=== PATIENT | male | born 1965 | race Caucasian/White ===

== ENCOUNTER 2020-07-09 11:07 | Emergency (ER) | payer OTHER ==
[~2020-07-09] VITALS: Ht 162.6 cm; Wt 78.9 kg
[~2020-07-09 11:07] MED LIST: ABAC1TAB3 PO; CARV25TA PO; DARU600T2 PO; DOXA4TAB3 PO; GLIP5TAB13 PO; HYDR25TA4 PO; LISI2.5T2 PO; OMEP20TA5 PO; PRAV40TA3 PO
[2020-07-09 11:14] VITALS: BP 160/105
--- NOTE | 2020-07-09 11:31 | NUR ---
Patient discharged to home in stable condition. Written and verbal after care instructions given. Patient verbalizes understanding of instruction.
== END 2020-07-09 11:31 | disposition home or self-care (01) ==
LOC: ER 11:07
DX: M54.12 Radiculopathy, cervical region (principal); I10 Essential (primary) hypertension; E11.9 Type 2 diabetes mellitus without complications; K21.9 Gastro-esophageal reflux disease without esophagitis; Z79.899 Other long term (current) drug therapy

== ENCOUNTER 2021-07-16 13:19 | Emergency (ER) | payer OTHER ==
[~2021-07-16] VITALS: Ht 162.6 cm; Wt 75.3 kg
--- NOTE | 2021-07-16 13:40 | NUR ---
TO ER BED 4, PENILE ITCHING, PERSISTENT URGE TO URINATE SINCE YESTERDAY, AAOX4, BREATHING EVEN AND NON LABORED
--- NOTE | 2021-07-16 14:17 | NUR ---
URINE SENT TO LAB
[2021-07-16 16:13] LABS: BILIRUBIN,URINE NEGATIVE (NEGATIVE); COLOR,URINE YELLOW (YELLOW); LEUKOCYTE ESTERASE ,URINE NEGATIVE (NEGATIVE); NITRITE, URINE NEGATIVE (NEGATIVE); UGLUCOSE NEGATIVE (NEGATIVE); UROBILINOGEN,URINE 0.2 EU/dL (0.2)
[2021-07-16 16:14] LABS: PROTEIN,URINE NEGATIVE (NEGATIVE)
[2021-07-16] MEDS ORDERED: CLOT15CR27 TP (16:51)
--- NOTE | 2021-07-16 17:02 | NUR ---
Patient discharged to home in stable condition. Written and verbal after care instructions given. Patient verbalizes understanding of instruction.
[2021-07-16 17:03] VITALS: BP 131/75
== END 2021-07-16 17:03 | disposition home or self-care (01) ==
LOC: ER 13:25
DX: N48.1 Balanitis (principal); I10 Essential (primary) hypertension; E11.9 Type 2 diabetes mellitus without complications; K21.9 Gastro-esophageal reflux disease without esophagitis; Z79.899 Other long term (current) drug therapy; Z79.84 Long term (current) use of oral hypoglycemic drugs

== ENCOUNTER → 2021-12-25 | Emergency (ER) | payer OTHER ==
[~2021-12-25] VITALS: Ht 167.6 cm; Wt 72.6 kg
[~2021-12-25] MED LIST changes: +CLOT15CR27 TP; +HYDR30CR79 TP
[2021-12-25 18:44] VITALS: BP 162/85
--- NOTE | 2021-12-25 19:45 | NUR ---
Patient discharged to home in stable condition. Written and verbal after care instructions given. Patient verbalizes understanding of instruction.
== END | disposition home or self-care (01) ==
LOC: ER 18:46
DX: K64.8 Other hemorrhoids (principal); I10 Essential (primary) hypertension; K21.9 Gastro-esophageal reflux disease without esophagitis; E11.9 Type 2 diabetes mellitus without complications; Z79.52 Long term (current) use of systemic steroids; Z79.899 Other long term (current) drug therapy

== ENCOUNTER 2022-01-04 08:33 | Emergency (ER) | payer OTHER ==
[~2022-01-04] VITALS: Ht 162.6 cm; Wt 77.1 kg
[2022-01-04 08:52] VITALS: BP 163/87
--- NOTE | 2022-01-04 08:52 | NUR ---
SENT TO ER BED 1. BIBS C/O ITCHY THROAT X3DAYS.
--- NOTE | 2022-01-04 09:11 | NUR ---
RAPID STREP SWAB DONE AND SENT TO LAB
--- NOTE | 2022-01-04 10:18 | NUR ---
Patient discharged to home in stable condition. Written and verbal after care instructions given. Patient verbalizes understanding of instruction.
== END 2022-01-04 10:19 | disposition home or self-care (01) ==
LOC: ER 08:36
DX: R07.0 Pain in throat (principal); L29.9 Pruritus, unspecified; I10 Essential (primary) hypertension; K21.9 Gastro-esophageal reflux disease without esophagitis; Z79.899 Other long term (current) drug therapy
CPT/HCPCS: 86403-TC; 87070-TC

== ENCOUNTER 2022-04-20 06:34 | Emergency (ER) | payer OTHER ==
[~2022-04-20] VITALS: Ht 162.6 cm; Wt 76.2 kg
--- NOTE | 2022-04-20 06:51 | NUR ---
BIBS. RECTAL PAIN X LAST 05/08/22 S/P COLON SX. URINARY FREQUENCY X 3 DAYS. PT A/OX4. TOLERATING R/A WELL WITH NO SOB. AMBULATORY WITH STEADY GAIT. CONNECTED PT TO POX AND MONITOR. SAFETY MEASURES IN PLACE.
--- NOTE | 2022-04-20 06:59 | NUR ---
BIBS TO ER BED 7.AAOX4. NOT IN RESP DISTRESS. AMBULATORY. CAME IN FOR RECTAL PAIN SINCE HAD HIS COLON SURGERY FOR TUMOR REMOVAL. PT ALSO COMPLAINS OF URINARY FREQUENCY FOR THE PAST 3 DAYS WHIC HE THINKS MIGHT BE CAUSED BY HIS PAIN MEDS THAT HAVE CODEINE. PAIN IS REPORTED TO BE WORSENING. SURGERY WAS DONE AT [facility]. PT IS GOWN. AWAITING MD FOR EVAL. URINE WAS ALSO COLLECTED AND SENT TO LAB
--- NOTE | 2022-04-20 07:01 | NUR ---
URINE COLLECTED AND SENT TO LAB
--- NOTE | 2022-04-20 07:07 | NUR ---
DR. BEN VANEGAS AT PT'S BEDSIDE
[2022-04-20] MEDS ORDERED: ONDANSETRON HCL/PF 4 MG/2 ML VIAL IVP ONE (07:30)
[2022-04-20] MEDS ORDERED: MORPHINE SULFATE INJ 4 MG/ML DISP.SYRIN ONE (07:30)
[2022-04-20] MEDS ORDERED: MORPHINE SULFATE INJ 2 MG/ML DISP.SYRIN IV ONE (07:30)
[2022-04-20] MEDS ORDERED: IV NS 0.9% 1,000 ML BAG IV ONE (07:30)
[2022-04-20] MEDS ORDERED: ONDANSETRON HCL/PF 4 MG/2 ML VIAL ONE (07:30)
[2022-04-20 07:49] LABS: BASOPHILS % (AUTO) 0.5 % (0.0-2.0); EOSINOPHILS % (AUTO) 2.9 % (0.0-6.0); HEMATOCRIT 37 % (39-51); HEMOGLOBIN 12.7 g/dL (13.5-17.5); LYMPHOCYTES # (AUTO) 1.2 K/uL (0.8-4.8); LYMPHOCYTES % (AUTO) 17.1 % (20.0-44.0); MEAN CORPUSCULAR HGB CONC 35 g/dl (31.0-36.0); MEAN CORPUSCULAR VOLUME 93 fL (80-96); MONOCYTES # (AUTO) 0.6 K/uL (0.1-1.30); NEUTROPHILS % (AUTO) 71.5 % (43.0-81.0); PLATELET COUNT (AUTO) 188 K/uL (150-450); RED BLOOD CELL COUNT(AUTO) 3.94 MIL/uL (4.5-6.0)
[2022-04-20 08:00] LABS: BILIRUBIN,URINE NEGATIVE (NEGATIVE); COLOR,URINE YELLOW (YELLOW); LEUKOCYTE ESTERASE ,URINE NEGATIVE (NEGATIVE); NITRITE, URINE NEGATIVE (NEGATIVE); PROTEIN,URINE 30 mg/dl (NEGATIVE); UGLUCOSE NEGATIVE (NEGATIVE); UROBILINOGEN,URINE 0.2 EU/dL (0.2)
[2022-04-20 08:03] LABS: CREATININE 1.2 mg/dL (0.6-1.3); POTASSIUM 4.1 mmol/L (3.5-5.1)
[2022-04-20 08:18] LABS: ALBUMIN 3.8 g/dL (3.4-5.0); BILIRUBIN,DIRECT 0.1 mg/dL (0.0-0.2); BILIRUBIN,TOTAL 0.6 mg/dL (0.2-1.0); TOTAL PROTEIN, SERUM 8.3 g/dL (6.4-8.2)
--- NOTE | 2022-04-20 08:38 | NUR ---
CALLED [facility] AND WAS NOTIFIED OF PT STATUS. NOW AWAITING CALL BACK FOR RADHA VANEGAS TO SPEAK TO DR. NARANJO
[2022-04-20 09:00] LABS: BACTERIA,URINE None seen /HPF (None Seen); SQUAMOUS EPITHELIAL CELL,UR 0-2 /HPF (None Seen); WBC,URINE 0-2 /HPF (0-3)
[2022-04-20 09:01] LABS: RBC,URINE 0-2 /HPF (0-2)
[2022-04-20] MEDS ORDERED: ACET325T53 PO (09:24)
[2022-04-20] MEDS ORDERED: POLY17PO4 PO (09:24)
[2022-04-20] MEDS ORDERED: DOCU100C36 PO (09:24)
[2022-04-20 10:20] VITALS: BP 124/75
--- NOTE | 2022-04-20 10:24 | NUR ---
Patient discharged to home in stable condition. Written and verbal after care instructions given. Patient verbalizes understanding of instruction.
== END 2022-04-20 10:24 | disposition home or self-care (01) ==
LOC: ER 06:34
DX: K62.89 Other specified diseases of anus and rectum (principal); I10 Essential (primary) hypertension; K21.9 Gastro-esophageal reflux disease without esophagitis; E11.9 Type 2 diabetes mellitus without complications; Z79.899 Other long term (current) drug therapy
CPT/HCPCS: 36415; 74176; 80048; 80076; 81001; 83605; 85025; 87040 ×2; 87086; 96361; 96374; 96375; 99284; J2270; J2405; J7030

== ENCOUNTER 2022-04-28 22:09 | Inpatient (IN) | payer OTHER ==
[~2022-04-28] VITALS: Ht 170.2 cm; Wt 76.2 kg
[~2022-04-28 22:09] MED LIST changes: +ACET325T53 PO; +DOCU100C36 PO; +POLY17PO4 PO
--- NOTE | 2022-04-28 22:22 | NUR ---
BIBRA C/O BRIGHT RED RECTAL BLEEDING S/P POLYP REMOVAL AT [facility]. PT AWAKE AND ALERT X4 BREATHING EVEN AND UNLABORED DENIES PAIN. PT CHANGED INTO GOWN AND PLACED ON MONITOR AND V/S WNL.
--- NOTE | 2022-04-28 22:24 | NUR ---
DR GUPTA CONSULTING WITH SHIRLEY ARCINIEGA ON THE PHONE
--- NOTE | 2022-04-28 22:35 | NUR ---
18G IV LINE ESTABLISHED AT [facility] BLOOD DRAWN AND SENT TO LAB
[2022-04-28 22:46] LABS: BASOPHILS % (AUTO) 0.6 % (0.0-2.0); EOSINOPHILS % (AUTO) 1.9 % (0.0-6.0); HEMATOCRIT 39 % (39-51); HEMOGLOBIN 13.5 g/dL (13.5-17.5); LYMPHOCYTES # (AUTO) 2.2 K/uL (0.8-4.8); LYMPHOCYTES % (AUTO) 25.8 % (20.0-44.0); MEAN CORPUSCULAR HGB CONC 35 g/dl (31.0-36.0); MEAN CORPUSCULAR VOLUME 93 fL (80-96); MONOCYTES # (AUTO) 0.5 K/uL (0.1-1.30); MONOCYTES % (AUTO) 6.1 % (2.0-12.0); NEUTROPHILS # (AUTO) 5.5 K/uL (1.8-8.9); NEUTROPHILS % (AUTO) 65.6 % (43.0-81.0); PLATELET COUNT (AUTO) 213 K/uL (150-450); RED BLOOD CELL COUNT(AUTO) 4.18 MIL/uL (4.5-6.0); WHITE BLOOD COUNT (AUTO) 8.4 K/uL (4.3-11.0)
--- NOTE | 2022-04-28 22:48 | NUR ---
FLUME WORKER AT PT'S BEDSIDE
--- NOTE | 2022-04-28 22:53 | NUR ---
SECOND IV LINE ESTABLISHED 18G AT [facility] PER MD ORDER
--- NOTE | 2022-04-28 22:54 | NUR ---
COVID TEST COLLECTED AND SENT TO LAB
[2022-04-28] MEDS ORDERED: IV NS 0.9% 1,000 ML BAG IV ONE (23:00)
[2022-04-28 23:13] LABS: ALANINE AMINOTRANSFERASE 15 U/L (12-78); ALBUMIN 4.1 g/dL (3.4-5.0); ALKALINE PHOSPHATASE 92 U/L (46-116); ASPARTATE AMINOTRANSFERASE 19 U/L (15-37); BILIRUBIN,DIRECT 0.1 mg/dL (0.0-0.2); BILIRUBIN,TOTAL 0.5 mg/dL (0.2-1.0); CALCIUM, SERUM 9.5 mg/dL (8.5-10.1); CARBON DIOXIDE 28 mmol/L (21-32); CREATININE 1.3 mg/dL (0.6-1.3); GLUCOSE 112 mg/dL (74-106); LIPASE 94 U/L (73-393); UREA NITROGEN, BLOOD 24 mg/dL (7-18)
[2022-04-28 23:30] LABS: CHLORIDE 100 mmol/L (98-107); POTASSIUM 3.9 mmol/L (3.5-5.1); SODIUM SERUM 136 mmol/L (136-145)
[2022-04-28] MEDS ORDERED: ONDANSETRON HCL/PF 4 MG/2 ML VIAL IVP PRN (23:30)
[2022-04-28] MEDS ORDERED: ACETAMINOPHEN 325 MG TABLET PO PRN (23:30)
[2022-04-29] VITALS (25 sets, daily range): BP systolic 122–168; BP diastolic 68–112
--- NOTE | 2022-04-29 00:24 | NUR ---
CALLED FOR REPORT. RN WILL CALL BACK.
--- NOTE | 2022-04-29 00:24 | NUR ---
EGG SETTER AT BEDSIDE FOR ECHOCARDIOGRAM
--- NOTE | 2022-04-29 00:25 | NUR ---
MRSA SWAB COLLECTED AND SENT TO LAB. PATIENT'S BELONGINGS LIST DONE.
--- NOTE | 2022-04-29 00:30 | NUR ---
PATIENT'S HOME LIST UPDATED PER PT'S STATEMENT; HOWEVER, HE DOES NOT RECALL THE COMPLETE LIST OF HIS HOME MEDS WITH THEIR FREQUENCY AND DOSE
[2022-04-29] MEDS ORDERED: DOLU1TAB PO (00:36)
[2022-04-29] MEDS ORDERED: FLUO40CA8 PO (00:36)
[2022-04-29] MEDS ORDERED: ALFU10TA10 PO (00:36)
[2022-04-29] MEDS ORDERED: METF-440 PO (00:36)
[2022-04-29] MEDS ORDERED: ATOR10TA PO (00:36)
--- NOTE | 2022-04-29 00:45 | NUR ---
REPORT GIVEN TO HORTENCIA MACDONALD
[2022-04-29] MEDS: IV NS 0.9% 1,000 ML IV PRN ×2 (00:51→15:06)
--- NOTE | 2022-04-29 00:59 | NUR ---
PT TRANSPORTED TO ROOM 252 ON CARDIAC PER ACLS
--- NOTE | 2022-04-29 01:00 | NUR ---
ICU/LEATHER ETCHER PT RECIEVED FROM ER. PLACED INTO BED. CALL LIGHT WITHIN REACH.
[2022-04-29] MEDS: PANTOPRAZOLE 40 MG VIAL IV SCH ×2 (01:42→08:52)
[2022-04-29 02:37] LABS: BASOPHILS % (AUTO) 0.5 % (0.0-2.0); EOSINOPHILS % (AUTO) 2.6 % (0.0-6.0); HEMATOCRIT 35 % (39-51); HEMOGLOBIN 12.4 g/dL (13.5-17.5); LYMPHOCYTES # (AUTO) 2.2 K/uL (0.8-4.8); LYMPHOCYTES % (AUTO) 26.7 % (20.0-44.0); MEAN CORPUSCULAR HGB CONC 35 g/dl (31.0-36.0); MEAN CORPUSCULAR VOLUME 92 fL (80-96); MONOCYTES # (AUTO) 0.6 K/uL (0.1-1.30); MONOCYTES % (AUTO) 7.1 % (2.0-12.0); NEUTROPHILS # (AUTO) 5.1 K/uL (1.8-8.9); NEUTROPHILS % (AUTO) 63.1 % (43.0-81.0); PLATELET COUNT (AUTO) 201 K/uL (150-450); RED BLOOD CELL COUNT(AUTO) 3.82 MIL/uL (4.5-6.0); WHITE BLOOD COUNT (AUTO) 8.1 K/uL (4.3-11.0)
[2022-04-29 02:49] LABS: CALCIUM, SERUM 8.7 mg/dL (8.5-10.1); CREATININE 1.2 mg/dL (0.6-1.3); PHOSPHORUS 3.6 mg/dL (2.5-4.9)
--- NOTE | 2022-04-29 03:00 | NUR ---
ICU/LOG POND WORKER AM CRITICAL OF TROP IS 146, EALIER WAS 151. EDGE WORKER JOSE GOMEZ WAS AWARE. NO ORDERS.
[2022-04-29 03:02] LABS: POTASSIUM 3.9 mmol/L (3.5-5.1)
[2022-04-29 05:53] LABS: BASOPHILS % (AUTO) 0.4 % (0.0-2.0); HEMATOCRIT 36 % (39-51); HEMOGLOBIN 12.4 g/dL (13.5-17.5); LYMPHOCYTES # (AUTO) 1.8 K/uL (0.8-4.8); LYMPHOCYTES % (AUTO) 25.2 % (20.0-44.0); MEAN CORPUSCULAR HGB CONC 35 g/dl (31.0-36.0); MEAN CORPUSCULAR VOLUME 93 fL (80-96); MONOCYTES # (AUTO) 0.5 K/uL (0.1-1.30); MONOCYTES % (AUTO) 6.8 % (2.0-12.0); NEUTROPHILS # (AUTO) 4.7 K/uL (1.8-8.9); NEUTROPHILS % (AUTO) 65.6 % (43.0-81.0); PLATELET COUNT (AUTO) 202 K/uL (150-450); RED BLOOD CELL COUNT(AUTO) 3.86 MIL/uL (4.5-6.0); WHITE BLOOD COUNT (AUTO) 7.2 K/uL (4.3-11.0)
--- NOTE | 2022-04-29 06:00 | NUR ---
ICU/AGILE JAVA DEVELOPER PT CHANGED DIAPER, SMALL BLOODY FOUND IN DIAPER. H/H IS STABLE AT THIS TIME.
--- NOTE | 2022-04-29 07:36 | NUR ---
RN NOTE PATIENT RECEIVED IN BED, RESTING. PATIENT ON RA WITH NO SIGNS OF LABORED BREATHING AT THIS TIME. RIGHT AC 18G AND LEFT AC 18G IV UN PLACE RUNNING NS AT 75CC/HR. BED LOCKED AND IN LOWEST POSITION, CALL LIGHT WITHIN REACH, 3 SIDE RAILS UP.
[2022-04-29] MEDS ORDERED: ACETAMINOPHEN 325 MG TABLET PO PRN (08:30)
[2022-04-29] MEDS: FLUOXETINE HCL 20 MG CAPSULE PO SCH (08:53)
[2022-04-29] MEDS: ATORVASTATIN 10 MG TABLET PO SCH (08:53)
[2022-04-29] MEDS: DOCUSATE SODIUM 100 MG CAPSULE PO SCH ×2 (08:53→16:16)
[2022-04-29] MEDS ORDERED: ALFUZOSIN HCL PO SCH (09:00)
[2022-04-29] MEDS: CLOTRIMAZOLE 1% 15 GM TUBE TP SCH ×2 (09:05→16:16)
[2022-04-29] MEDS: HYDROCORTISONE CR 30 GM TUBE RC SCH ×3 (09:05→16:16)
[2022-04-29] MEDS ORDERED: IV NS 0.9% 250 ML IV ONE (11:29)
[2022-04-29] MEDS ORDERED: METOPROLOL TARTRATE INJ 5 MG/5 ML AMPUL ONE ×4 (11:29→12:21)
[2022-04-29] MEDS ORDERED: NITROGLYCERIN 0.4 MG/TAB BOTTLE ONE (11:29)
[2022-04-29] MEDS ORDERED: CT SWABBABLE VALVE TRANS SET 1 EA INFUS.SET MC ONE (11:29)
[2022-04-29] MEDS ORDERED: IOHEXOL-350 100 ML VIAL IV ONE ×2 (11:29→12:40)
[2022-04-29] MEDS: METOPROLOL TARTRATE INJ 5 MG/5 ML AMPUL IVP PRN ×10 (11:50→12:35)
--- NOTE | 2022-04-29 11:50 | NUR ---
RN NOTE PT TRANSPORTED FOR CT CORONARY ANGIOGRAM WITH CONTRACT. RN ARPI TO STAY WITH PT.
[2022-04-29] MEDS ORDERED: NITROGLYCERIN 0.4 MG/TAB BOTTLE SL ONE (12:00)
--- NOTE | 2022-04-29 15:00 | NUR ---
RN NOTE CRITICAL LAB VALUE OF TROPONIN 164 RECEIVED, NOTIFIED DR. HEBERT.
--- NOTE | 2022-04-29 16:06 | NUR ---
RN NOTE BP ELEVATED 161/112 AND 165/102. NO PRN OR SCHEDULED BLOOD PRESSURE MEDICATION AVAILABLE. DR. HEBERT NOTIFIED.
--- NOTE | 2022-04-29 18:37 | NUR ---
RN CLOSING NOTE PATIENT REMAINS IN BED, AWAKE, A&OX4. PATIENT ON RA WITH NO SIGNS OF LABORED BREATHING AT THIS TIME. RIGHT AC 18G AND LEFT AC 18G IV UN PLACE RUNNING NS AT 75CC/HR. PT SCHEDULED FOR LEFT HEART CATH IN AM, CONSENT SIGNED IN CHART. BED LOCKED AND IN LOWEST POSITION, CALL LIGHT WITHIN REACH, 3 SIDE RAILS UP. WILL ENDORSE TO SHREDDING MACHINE OPERATOR NURSE FOR PHILIP.
[2022-04-29] MEDS ORDERED: TEMAZEPAM 7.5 MG CAPSULE PO PRN (21:00)
[2022-04-30] VITALS (19 sets, daily range): BP systolic 139–173; BP diastolic 77–105
--- NOTE | 2022-04-30 00:10 | NUR ---
ICU/STAFF THERAPIST PT IS CURRENTLY NPO FOR CONTROL CLERK SUBASSEMBLY @10 AM TODAY.
[2022-04-30] MEDS: IV NS 0.9% 1,000 ML IV PRN ×2 (03:04→17:01)
--- NOTE | 2022-04-30 07:28 | NUR ---
RN NOTE PATIENT RECEIVED IN BED, RESTING. PATIENT ON RA WITH NO SIGNS OF LABORED BREATHING AT THIS TIME. RIGHT AC 18G AND LEFT AC 18G IV UN PLACE RUNNING NS AT 75CC/HR. PT NPO SINCE MIDNIGHT FOR SCHEDULED SPA CONCIERGE PROCEDURE TODAY. BED LOCKED AND IN LOWEST POSITION, CALL LIGHT WITHIN REACH, 3 SIDE RAILS UP.
[2022-04-30] MEDS: PANTOPRAZOLE 40 MG VIAL IV SCH (08:01)
[2022-04-30] MEDS: DOCUSATE SODIUM 100 MG CAPSULE PO SCH ×2 (08:01→16:32)
[2022-04-30] MEDS: ATORVASTATIN 10 MG TABLET PO SCH (08:01)
[2022-04-30] MEDS: CLOTRIMAZOLE 1% 15 GM TUBE TP SCH ×2 (08:01→16:33)
[2022-04-30] MEDS: HYDROCORTISONE CR 30 GM TUBE RC SCH ×3 (08:01→16:33)
[2022-04-30] MEDS: FLUOXETINE HCL 20 MG CAPSULE PO SCH (08:01)
[2022-04-30] MEDS ORDERED: IV SET PRIMARY PUMP SET 1 EA INFUS.SET MC ONE (10:14)
[2022-04-30] MEDS ORDERED: IV NS 0.9% 1,000 ML ONE (10:14)
[2022-04-30] MEDS ORDERED: IODIXANOL 150 ML IV ONE (10:14)
[2022-04-30] MEDS ORDERED: LIDOCAINE 1% INJ 50 ML MDV IJ ONE (10:15)
--- NOTE | 2022-04-30 10:16 | NUR ---
RN NOTE PATIENT PICKED UP BY MARINE PILOT TEAM WITH FERN BROWN FOR PROCEDURE.
[2022-04-30] MEDS ORDERED: FENTANYL PF 100MCG/2ML AMPUL ONE (10:26)
[2022-04-30] MEDS ORDERED: MIDAZOLAM HCL 2 MG/2ML VIAL ONE (10:27)
[2022-04-30] MEDS ORDERED: hydrALAZINE HCL IV 20 MG VIAL ONE (11:04)
[2022-04-30] MEDS ORDERED: NICARDIPINE HCL 25 MG/10 ML VIAL IV ONE (11:07)
--- NOTE | 2022-04-30 11:45 | NUR ---
RN NOTE PATIENT RETURN FROM CAUSTIC ROOM ATTENDANT. TR BAND ON RIGHT WRIST WITH 14CC OF AIR PLACED AT 1120. PER ORDER, WILL START TO DC BAND ONE HOUR AFTER PLACEMENT GRADUALLY. NO SIGNS OF BLEEDING AT SITE AT THIS TIME. PT DOES NOT REPORT PAIN OR DISCOMFORT. VITAL SIGNS STABLE, NO SHORTNESS OF BREATH NOTED.
--- NOTE | 2022-04-30 12:22 | NUR ---
RN NOTE 3CC OF AIR REMOVED FROM TR BAND. NO SIGNS OF BLEEDING.
--- NOTE | 2022-04-30 12:38 | NUR ---
RN NOTE 5CC OF AIR REMOVED FROM TR BAND. NO BLEEDING.
--- NOTE | 2022-04-30 12:53 | NUR ---
RN NOTE 3CC OF AIR REMOVED. NO SIGNS OF BLEEDING.
--- NOTE | 2022-04-30 13:16 | NUR ---
RN NOTE TR BAND REMOVED. NO SIGNS OF BLEEDING. DRESSING PLACED.
[2022-04-30 14:46] LABS: CALCIUM, SERUM 8.9 mg/dL (8.5-10.1); POTASSIUM 3.5 mmol/L (3.5-5.1)
[2022-04-30 14:52] LABS: BASOPHILS % (AUTO) 0.5 % (0.0-2.0); EOSINOPHILS % (AUTO) 0.9 % (0.0-6.0); HEMATOCRIT 36 % (39-51); HEMOGLOBIN 12.7 g/dL (13.5-17.5); LYMPHOCYTES # (AUTO) 1.5 K/uL (0.8-4.8); LYMPHOCYTES % (AUTO) 20.6 % (20.0-44.0); MEAN CORPUSCULAR HGB CONC 35 g/dl (31.0-36.0); MEAN CORPUSCULAR VOLUME 92 fL (80-96); MONOCYTES # (AUTO) 0.4 K/uL (0.1-1.30); MONOCYTES % (AUTO) 5.7 % (2.0-12.0); NEUTROPHILS # (AUTO) 5.1 K/uL (1.8-8.9); NEUTROPHILS % (AUTO) 72.3 % (43.0-81.0); PLATELET COUNT (AUTO) 219 K/uL (150-450); RED BLOOD CELL COUNT(AUTO) 3.95 MIL/uL (4.5-6.0)
--- NOTE | 2022-04-30 17:40 | NUR ---
RN NOTE PATIENT TRANSFERRED TO [facility] BED 320-1. REPORT GIVEN TO JAIME BORWN FOR HPILIP.
[2022-04-30] MEDS ORDERED: CLONIDINE HCL 0.1 MG TABLET PO PRN (18:00)
--- NOTE | 2022-04-30 18:01 | NUR ---
SENIOR HYDROGEOLOGIST NOTES PATIENT TRANSFERRED FROM ICU 320-1 @1745, A/Ox4. ACCOMPANIED BY KEVIN ARTEAGA. ON ROOM AIR NO S/S OF RESPIRATORY DISTRESS OR DISCOMFORT. PATIENT IS ON TELE MONITORING CURRENTLY SHOWING SINUS RHYTHM 89. POLISH SPEAKING BUT UNDERSTANDS CITIZEN OF [place] ABLE TO MAKE NEEDS KNOWN. CAME IN FOR RECTAL BLEEDING AND NSTEMI. IV ACCESS ON R AND L AC #18G, L AC RUNNING NS @75 ML/HR, INTACT AND PATENT. SKIN INTACT, NO PAIN OR DISCOMFORT NOTED OR VERBALIZED AT THIS TIME. TR-BAND REMOVED FROM ICU, DRESSING PRESENT AND INTACT ON R WRIST. NO S/S OF BLEEDING NOTED. SAFETY MEASURES MAINTAINED: BED LOCKED AND IN LOWEST POSITION, SIDE RAILS UP x2, CALL LIGHT WITHIN REACH. HEAD OF THE BED ELEVATED. WILL CONTINUE TO MONITOR.
--- NOTE | 2022-04-30 18:08 | NUR ---
APPRENTICE EMBALMER NOTES DR. HEBERT NOTIFIED OF HIGH BLOOD PRESSURE 164/90. CLONIDINE 0.1 MG PO TABLET PRN Q6 ORDERED. NEW ORDER NOTED AND MEDICATION ADMINISTERED. REQUESTED DR. HEBERT TO ALSO DO MEDICATION RECON.
--- NOTE | 2022-04-30 18:35 | NUR ---
PRODUCTION ENGINEER CLOSING NOTES PATIENT RESTING IN BED WATCHING TV, A/Ox4. STABLE ON ROOM AIR NO S/S OF RESPIRATORY DISTRESS OR DISCOMFORT. PATIENT IS ON TELE MONITORING CURRENTLY SHOWING SINUS RHYTHM 90. JAPANESE SPEAKING BUT UNDERSTANDS CHINESE ABLE TO MAKE NEEDS KNOWN. CAME IN FOR RECTAL BLEEDING AND NSTEMI. IV ACCESS ON R AND L AC #18G, L AC RUNNING NS @75 ML/HR, INTACT AND PATENT. SKIN INTACT, NO PAIN OR DISCOMFORT NOTED OR VERBALIZED AT THIS TIME. TR-BAND REMOVED FROM ICU, DRESSING PRESENT AND INTACT ON R WRIST. NO S/S OF BLEEDING NOTED. SAFETY MEASURES MAINTAINED: BED LOCKED AND IN LOWEST POSITION, SIDE RAILS UP x2, CALL LIGHT WITHIN REACH. HEAD OF THE BED ELEVATED. WILL ENDORSE TO NEXT SHIFT ANY PHILIP.
--- NOTE | 2022-04-30 19:36 | NUR ---
RN OPENING NOTES PATIENT RECIEVED IN BED AA/Ox4. STABLE ON ROOM AIR NO SIGN SOB/DISTRESS NOTED.BENGAL[place] SPEAKING BUT UNDERSTANDS ALBANIAN ABLE TO MAKE NEEDS KNOWN.IV ACCESS ON R AND L AC 18G,INTACT AND PATENT. SKIN INTACT, NO PAIN OR DISCOMFORT AT THIS TIME.SAFETY MEASURES MAINTAINED: BED LOCKED AND IN LOWEST POSITION, SIDE RAILS UP x2, CALL LIGHT WITHIN REACH.WILL CONTINUE TO MONITOR.
[2022-05-01] VITALS: BP 150/58
[2022-05-01 01:29] VITALS: BP 150/88
[2022-05-01 04:00] VITALS: BP 159/87
[2022-05-01] MEDS: IV NS 0.9% 1,000 ML IV PRN (05:44)
[2022-05-01 06:44] LABS: BASOPHILS % (AUTO) 0.5 % (0.0-2.0); EOSINOPHILS % (AUTO) 2.3 % (0.0-6.0); HEMATOCRIT 33 % (39-51); HEMOGLOBIN 11.7 g/dL (13.5-17.5); LYMPHOCYTES # (AUTO) 1.4 K/uL (0.8-4.8); LYMPHOCYTES % (AUTO) 21.4 % (20.0-44.0); MEAN CORPUSCULAR HGB CONC 36 g/dl (31.0-36.0); MEAN CORPUSCULAR VOLUME 91 fL (80-96); MONOCYTES # (AUTO) 0.5 K/uL (0.1-1.30); MONOCYTES % (AUTO) 7.3 % (2.0-12.0); NEUTROPHILS # (AUTO) 4.5 K/uL (1.8-8.9); NEUTROPHILS % (AUTO) 68.5 % (43.0-81.0); PLATELET COUNT (AUTO) 193 K/uL (150-450); RED BLOOD CELL COUNT(AUTO) 3.59 MIL/uL (4.5-6.0); WHITE BLOOD COUNT (AUTO) 6.6 K/uL (4.3-11.0)
--- NOTE | 2022-05-01 06:51 | NUR ---
RN OPENING NOTES PATIENT IN BED AA/Ox4. STABLE ON ROOM AIR NO SIGN SOB/DISTRESS NOTED.IV ACCESS ON R AND L AC 18G,INTACT AND PATENT.ALL DUE MEDS GIVEN ORDER.NO PAIN OR DISCOMFORT DURING SHIFT.SAFETY MEASURES MAINTAINED: BED LOCKED AND IN LOWEST POSITION, SIDE RAILS UP x2, CALL LIGHT WITHIN REACH.WILL ENDORSED TO NEXT SHIFT.
[2022-05-01 07:07] LABS: CALCIUM, SERUM 8.7 mg/dL (8.5-10.1); CREATININE 0.9 mg/dL (0.6-1.3); POTASSIUM 3.4 mmol/L (3.5-5.1)
--- NOTE | 2022-05-01 07:27 | NUR ---
LIGHT INDUSTRIAL SUPERVISOR OPENING NOTE RECEIVED PT IN BED AWAKE. A/O X4, ABLE TO MAKE NEEDS KNOWN. ON RA, TOLERATING WELL. BREATHING UNLABORED AND NOT IN ANY SIGN OF DISTRESS. ON CARDIAC TELE MONITOR WITH CURRENT READING OF SINUS RHYTHM, HR 70. NO C/O CARDIAC DISTRESS VOICED AT THIS TIME. IV ACCESS IN [facility] G #18 SALINE LOCK, INTACT AND PATENT. LAC G #18 INTACT AND PATENT WITH NS INFUSING AT 75ML/HR. SAFETY MEASURES IN PLACE: BED IN LOWEST AND LOCKED POSITION, SIDE RAILS UP X2, AND CALL LIGHT WITHIN REACH. WILL CONTINUE TO MONITOR PT.
[2022-05-01 08:00] VITALS: BP 177/88
[2022-05-01] MEDS: FLUOXETINE HCL 20 MG CAPSULE PO SCH (09:43)
[2022-05-01] MEDS: PANTOPRAZOLE 40 MG VIAL IV SCH (09:43)
[2022-05-01] MEDS: ATORVASTATIN 10 MG TABLET PO SCH (09:43)
[2022-05-01] MEDS: DOCUSATE SODIUM 100 MG CAPSULE PO SCH (09:44)
[2022-05-01] MEDS: HYDROCORTISONE CR 30 GM TUBE RC SCH (09:58)
[2022-05-01] MEDS: CLOTRIMAZOLE 1% 15 GM TUBE TP SCH (09:59)
--- NOTE | 2022-05-01 11:45 | NUR ---
CLAIMS DIRECTOR NOTES PT DISCHARGED TO HOME IN STABLE CONDITION. PT A/O X4, ABLE TO MAKE NEEDS KNOWN. ON RA, TOLERATING WELL WITH SPO2 98%. BREATHING EVEN AND UNLABORED. NOT IN ANY SIGN OF RESPIRATORY DISTRESS. VITAL SIGNS TAKEN, STABLE, AND RECORDED. SKIN IS INTACT WITH NO SKIN ISSUES NOTED. ALL BELONGINGS ACCOUNTED FOR. DISCHARGED INSTRUCTIONS AND HEALTH TEACHINGS GIVEN TO PT AND PT VERBALIZED UNDERSTANDING. IV ACCESS IN R[facility] G #18 AND LAC G #18 REMOVED WITH NO ACTIVE BLEEDING NOTED. DRY PRESSURE DRESSING APPLIED AT BOTH SITE. PT STATED THAT HE WANTS TO WALK HOME SINCE HE LIVES CLOSE TO [facility]. PER PT HE HAS NO RELATIVE OR FRIENDS THAT CAN PICK HIM UP. EXPLAINED RISK AND OFFERED TRANSPORTATION THAT CM WILL SET UP OR TAXI, PT STILL STRONGLY REFUSED TO TAKE TAXI OR ANY TRANSPORTATION. PT STILL WANTS TO WALK HOME. AWARE. PT LEFT THE UNIT AT 1137 AMBULATORY ACCOMPANIED BY RNREY. VANEGAS AND CHARGED NURSE AWARE OF DISCHARGED.
[2022-05-01] MEDS ORDERED: POTASSIUM CHLORIDE 20 MEQ POWDER PACKET PO SCH (15:00)
== END 2022-05-01 11:45 | disposition home or self-care (01) | DRG 919 ==
LOC: ER 22:11 → ICU 04-29 00:12 → TELE 04-30 17:19
PROVIDERS: ADMIT Nurse Practitioner Acute Care; ATTEND Internal Medicine
PROC: 4A023N7 Measurement of Cardiac Sampling and Pressure, Left Heart, Percutaneous Approach (ICD-10-PCS; principal; 2022-04-30)
PROC: B211YZZ Fluoroscopy of Multiple Coronary Arteries using Other Contrast (ICD-10-PCS; 2022-04-30)
DX: K91.840 Postprocedural hemorrhage of a digestive system organ or structure following a digestive system procedure (principal); I21.A1 Myocardial infarction type 2; I63.9 Cerebral infarction, unspecified; D62 Acute posthemorrhagic anemia; Z20.822 Contact with and (suspected) exposure to COVID-19; I10 Essential (primary) hypertension; E11.9 Type 2 diabetes mellitus without complications; Y84.8 Other medical procedures as the cause of abnormal reaction of the patient, or of later complication, without mention of misadventure at the time of the procedure; Y92.009 Unspecified place in unspecified non-institutional (private) residence as the place of occurrence of the external cause; K21.9 Gastro-esophageal reflux disease without esophagitis; I25.10 Atherosclerotic heart disease of native coronary artery without angina pectoris; Z79.84 Long term (current) use of oral hypoglycemic drugs; Z79.899 Other long term (current) drug therapy; N26.1 Atrophy of kidney (terminal); R79.89 Other specified abnormal findings of blood chemistry; N28.81 Hypertrophy of kidney; F32.9 Major depressive disorder, single episode, unspecified
CPT/HCPCS: 36415; 71045-TC; 75574; 76770-TC; 80048-TC; 80061-TC; 80076-TC; 82962-TC; 83690-TC; 83735-TC; 84100-TC; 84484-TC; 85025-TC; 85730-TC; 86850-TC; 87081-TC; 93307-TC; C9113; C9803; G0378; G0500; J0360; J1644; J2250; J3010; J3490; J7030; J7050; Q9967

== ENCOUNTER 2022-05-04 04:54 | Emergency (ER) | payer OTHER ==
[~2022-05-04] VITALS: Ht 167.6 cm; Wt 71.7 kg
[~2022-05-04 04:54] MED LIST changes: -ABAC1TAB3 PO; +ALFU10TA10 PO; +ATOR10TA PO; -CARV25TA PO; -DARU600T2 PO; +DOLU1TAB PO; -DOXA4TAB3 PO; +FLUO40CA8 PO; -GLIP5TAB13 PO; -HYDR25TA4 PO; -LISI2.5T2 PO; +METF-440 PO; -OMEP20TA5 PO; -PRAV40TA3 PO
[2022-05-04 05:07] VITALS: BP 155/89
--- NOTE | 2022-05-04 05:20 | NUR ---
URINE COLLECTED AND SENT TO LAB
[2022-05-04 06:00] LABS: BILIRUBIN,URINE NEGATIVE (NEGATIVE); COLOR,URINE YELLOW (YELLOW); LEUKOCYTE ESTERASE ,URINE NEGATIVE (NEGATIVE); NITRITE, URINE NEGATIVE (NEGATIVE); PROTEIN,URINE TRACE mg/dl (NEGATIVE); UGLUCOSE NEGATIVE (NEGATIVE); UROBILINOGEN,URINE 0.2 EU/dL (0.2)
[2022-05-04 06:12] LABS: BACTERIA,URINE Rare /HPF (None Seen); RBC,URINE 0-2 /HPF (0-2); SQUAMOUS EPITHELIAL CELL,UR Few /HPF (None Seen); WBC,URINE 0-2 /HPF (0-3)
[2022-05-04] MEDS ORDERED: PHEN-704 PO (06:32)
== END 2022-05-04 06:40 | disposition home or self-care (01) ==
LOC: ER 04:56
DX: N21.0 Calculus in bladder (principal); I10 Essential (primary) hypertension; K21.9 Gastro-esophageal reflux disease without esophagitis; E11.9 Type 2 diabetes mellitus without complications; Z79.899 Other long term (current) drug therapy
CPT/HCPCS: 81001